=== PATIENT | female | born 1930 | race Caucasian/White ===

== ENCOUNTER 2018-06-26 23:12 | Inpatient (IN) | payer MEDICARE ==
[2018-06-26] MEDS ORDERED: SODIUM CHLORIDE 0.9% 1,000 ML IV STA (23:19)
--- NOTE | 2018-06-26 23:23 | ED ---
General Adult HPI - General Chief complaint: Altered Mental Status Stated complaint: hypoxemia Time Seen by Provider: 06/26/18 23:19 Source: EMS, RN notes reviewed, old records reviewed Mode of arrival: EMS Limitations: altered mental status - History of Present Illness Initial comments: This is an 87-year-old female the ER for evaluation. Patient coming in for unresponsiveness altered mental status, patient's poor strain, per EMS patient was found to be mildly hypoxic pulse ox 85%. Patient became arousable upon EMS arrival. Patient herself is complaining of no specific complaints is unable to answer significant questions, is able to say her name. No known baseline - Related Data Home Medications Medication Instructions Recorded Confirmed Atenolol 25 mg PO DAILY 10/06/17 10/06/17 Escitalopram [Lexapro] 20 mg PO DAILY 10/06/17 10/06/17 Menthol/Zinc Oxide [Calmoseptine 1 applic TOPICAL TID 10/06/17 10/06/17 Ointment] QUEtiapine [SEROquel] 400 mg PO HS 10/06/17 10/06/17 Previous Rx's Medication Instructions Recorded Aspirin 325 mg PO DAILY tab 10/10/17 Atorvastatin [Lipitor] 40 mg PO DAILY tab 10/10/17 LORazepam [Ativan] 0.5 mg PO BID #10 tablet 10/10/17 LORazepam [Ativan] 1 mg PO HS #5 tab 10/10/17 Pantoprazole [Protonix] 40 mg PO [id number] tablet. 10/10/17 Ciprofloxacin HCl [Cipro] 500 mg PO Q12HR #10 tablet 10/11/17 Allergies Allergy/AdvReac Type Severity Reaction Status Date / Time amphetamine [From Adderall] Allergy Unknown Verified 06/26/18 23:20 dextroamphetamine Allergy Unknown Verified 06/26/18 23:20 [From Adderall] Review of Systems ROS Statement: Those systems with pertinent positive or pertinent negative responses have been documented in the HPI. ROS Other: All systems not noted in ROS Statement are negative. Past Medical History Past Medical History: GERD/Reflux, Hyperlipidemia, Hypertension Additional Past Medical History / Comment(s): BIPOLAR, ANXIETY, COMPULSIVE, depression History of Any Multi-Drug Resistant Organisms: None Reported Past Surgical History: No Surgical Hx Reported Additional Past Surgical History / Comment(s): DAUGHTER IS UNSURE Past Psychological History: Anxiety, Bipolar, Depression Smoking Status: Never smoker Past Alcohol Use History: None Reported Past Drug Use History: None Reported General Exam Limitations: altered mental status General appearance: alert, in no apparent distress Head exam: Present: atraumatic, normocephalic, normal inspection Eye exam: Present: normal appearance, PERRL, EOMI. Absent: scleral icterus, conjunctival injection, periorbital swelling ENT exam: Present: normal exam, mucous membranes moist Neck exam: Present: normal inspection. Absent: tenderness, meningismus, lymphadenopathy Respiratory exam: Present: normal lung sounds bilaterally. Absent: respiratory distress, wheezes, rales, rhonchi, stridor Cardiovascular Exam: Present: regular rate, normal rhythm, normal heart sounds. Absent: systolic murmur, diastolic murmur, rubs, gallop, clicks GI/Abdominal exam: Present: soft, normal bowel sounds. Absent: distended, tenderness, guarding, rebound, rigid Extremities exam: Present: normal inspection, full ROM, normal capillary refill. Absent: tenderness, pedal edema, joint swelling, calf tenderness Back exam: Present: normal inspection Neurological exam: Present: alert, oriented X3, CN II-XII intact Psychiatric exam: Present: normal affect, normal mood Skin exam: Present: warm, dry, intact, normal color. Absent: rash Course Vital Signs 06/26/18 06/26/18 23:13 23:29 Temperature 97.2 F L Pulse Rate 84 64 Respiratory 22 18 Rate Blood Pressure 200/73 150/58 O2 Sat by Pulse 87 L 93 L Oximetry EKG Findings - EKG Comments: EKG Findings:: EKG shows normal sinus rhythm rate of 70, OH 162, QRS 82, QTc 455 Medical Decision Making - Lab Data Result diagrams: 06/26/18 23:30 06/26/18 23:30 Lab Results 06/26/18 06/26/18 06/26/18 Range/Units 23:30 23:30 23:30 WBC 8.3 (3.8-10.6) k/uL RBC 3.92 (3.80-5.40) m/uL Hgb 11.3 L (11.4-16.0) gm/dL Hct 34.4 (34.0-46.0) % MCV 87.8 (80.0-100.0) fL MCH 28.8 (25.0-35.0) pg MCHC 32.8 (31.0-37.0) g/dL RDW 14.4 (11.5-15.5) % Plt Count 160 (150-450) k/uL Neutrophils % 68 % Lymphocytes % 22 % Monocytes % 7 % Eosinophils % 2 % Basophils % 0 % Neutrophils # 5.6 (1.3-7.7) k/uL Lymphocytes # 1.9 (1.0-4.8) k/uL Monocytes # 0.5 (0-1.0) k/uL Eosinophils # 0.1 (0-0.7) k/uL Basophils # 0.0 (0-0.2) k/uL PT (9.0-12.0) sec INR (<1.2) APTT (22.0-30.0) sec Sodium 137 (137-145) mmol/L Potassium 3.7 (3.5-5.1) mmol/L Chloride 110 H (98-107) mmol/L Carbon Dioxide 21 L (22-30) mmol/L Anion Gap 6 mmol/L BUN 21 H (7-17) mg/dL Creatinine 0.50 L (0.52-1.04) mg/dL Est GFR (CKD-EPI)AfAm >90 (>60 ml/min/1.73 sqM) Est GFR (CKD-EPI)NonAf 89 (>60 ml/min/1.73 sqM) Glucose 122 H (74-99) mg/dL Plasma Lactic Acid Bg (0.7-2.0) mmol/L Calcium 8.3 L (8.4-10.2) mg/dL Phosphorus 3.4 (2.5-4.5) mg/dL Magnesium 1.9 (1.6-2.3) mg/dL Total Bilirubin 0.4 (0.2-1.3) mg/dL AST 22 (14-36) U/L ALT 32 (9-52) U/L Alkaline Phosphatase 64 (38-126) U/L Total Creatine Kinase 113 (30-135) U/L CK-MB (CK-2) 2.1 (0.0-2.4) ng/mL CK-MB (CK-2) Rel Index 1.9 Troponin I <0.012 (0.000-0.034) ng/mL Total Protein 5.9 L (6.3-8.2) g/dL Albumin 3.2 L (3.5-5.0) g/dL 06/26/18 06/26/18 Range/Units 23:30 23:30 WBC (3.8-10.6) k/uL RBC (3.80-5.40) m/uL Hgb (11.4-16.0) gm/dL Hct (34.0-46.0) % MCV (80.0-100.0) fL MCH (25.0-35.0) pg MCHC (31.0-37.0) g/dL RDW (11.5-15.5) % Plt Count (150-450) k/uL Neutrophils % % Lymphocytes % % Monocytes % % Eosinophils % % Basophils % % Neutrophils # (1.3-7.7) k/uL Lymphocytes # (1.0-4.8) k/uL Monocytes # (0-1.0) k/uL Eosinophils # (0-0.7) k/uL Basophils # (0-0.2) k/uL PT 10.9 (9.0-12.0) sec INR 1.1 (<1.2) APTT 23.8 (22.0-30.0) sec Sodium (137-145) mmol/L Potassium (3.5-5.1) mmol/L Chloride (98-107) mmol/L Carbon Dioxide (22-30) mmol/L Anion Gap mmol/L BUN (7-17) mg/dL Creatinine (0.52-1.04) mg/dL Est GFR (CKD-EPI)AfAm (>60 ml/min/1.73 sqM) Est GFR (CKD-EPI)NonAf (>60 ml/min/1.73 sqM) Glucose (74-99) mg/dL Plasma Lactic Acid Bg 0.8 (0.7-2.0) mmol/L Calcium (8.4-10.2) mg/dL Phosphorus (2.5-4.5) mg/dL Magnesium (1.6-2.3) mg/dL Total Bilirubin (0.2-1.3) mg/dL AST (14-36) U/L ALT (9-52) U/L Alkaline Phosphatase (38-126) U/L Total Creatine Kinase (30-135) U/L CK-MB (CK-2) (0.0-2.4) ng/mL CK-MB (CK-2) Rel Index Troponin I (0.000-0.034) ng/mL Total Protein (6.3-8.2) g/dL Albumin (3.5-5.0) g/dL Disposition Clinical Impression: Acute encephalopathy, Generalized weakness, Altered mental status, Hypoxia Disposition: ADMITTED IP TO THIS HOSP Condition: Fair Is patient prescribed a controlled substance at d/c from ED?: No Referrals: Drake Garcia DO [REFERRING] - 1-2 days
[2018-06-26 23:45] LABS: Basophils % (A) 0 %; Eosinophils # (A) 0.1 k/uL (0-0.7); Eosinophils % (A) 2 %; HCT 34.4 % (34.0-46.0); HGB 11.3 gm/dL (11.4-16.0); Lymphocytes # (A) 1.9 k/uL (1.0-4.8); Lymphocytes % (A) 22 %; MCH 28.8 pg (25.0-35.0); MCHC 32.8 g/dL (31.0-37.0); MCV 87.8 fL (80.0-100.0); Mean Platelet Volume 7.1; Monocytes # (A) 0.5 k/uL (0-1.0); Monocytes % (A) 7 %; Neutrophils # (A) 5.6 k/uL (1.3-7.7); Neutrophils % (A) 68 %; Platelet Count 160 k/uL (150-450); RBC 3.92 m/uL (3.80-5.40); RDW 14.4 % (11.5-15.5); WBC 8.3 k/uL (3.8-10.6)
[2018-06-26 23:52] LABS: INR 1.1 (<1.2); Partial Thromboplastin Time 23.8 sec (22.0-30.0); Prothrombin Time 10.9 sec (9.0-12.0)
[2018-06-26 23:54] LABS: ALT 32 U/L (9-52); AST 22 U/L (14-36); Albumin 3.2 g/dL (3.5-5.0); Alkaline Phosphatase 64 U/L (38-126); Anion Gap 6 mmol/L; Blood Urea Nitrogen 21 mg/dL (7-17); Calcium 8.3 mg/dL (8.4-10.2); Carbon Dioxide 21 mmol/L (22-30); Chloride 110 mmol/L (98-107); Glucose 122 mg/dL (74-99); Magnesium 1.9 mg/dL (1.6-2.3); Phosphorus 3.4 mg/dL (2.5-4.5); Potassium 3.7 mmol/L (3.5-5.1); Sodium 137 mmol/L (137-145); Total Bilirubin 0.4 mg/dL (0.2-1.3); Total Protein 5.9 g/dL (6.3-8.2)
[2018-06-26 23:56] LABS: Creatine Kinase 113 U/L (30-135)
[2018-06-27 00:09] LABS: Creatine Kinase MB 2.1 ng/mL (0.0-2.4); Troponin I <0.012 ng/mL (0.000-0.034)
--- NOTE | 2018-06-27 00:13 | XR ---
EXAMINATION TYPE: XR chest 2V DATE OF EXAM: 06/27/2018 COMPARISON: 10/06/2017 HISTORY: Weakness TECHNIQUE: Frontal and lateral views of the chest are obtained. FINDINGS: There is elevated right diaphragm and linear density at the right lung base. There is no h eart failure. Thoracic aorta is atheromatous. There is no definite pleural effusion. There are chest leads. IMPRESSION: Increased atelectasis at the right lung base compared to old exam. No heart failure.
[2018-06-27] MEDS ORDERED: LEVOFLOXACIN 750MG-D5W PMX 750 MG in DEXTROSE/WATER 1 150ML.BAG IVPB STA (00:25)
[2018-06-27] MEDS ORDERED: LEVOFLOXACIN 750MG-D5W PMX 750 MG in DEXTROSE/WATER 1 150ML.BAG IVPB SCH (00:30)
[2018-06-27 00:55] LABS: Appearance,Urine Clear (Clear); Bilirubin,Urine Negative (Negative); Blood,Urine Moderate (Negative); Color,Urine Yellow; Glucose,Urine (UA) Negative (Negative); Hyaline Casts,Urine 2 /lpf (0-2); Ketones,Urine Negative (Negative); Leukocyte Esterase,Urine Negative (Negative); Mucus,Urine Occasional /hpf; Nitrite,Urine Negative (Negative); PH, Urine 5.5 (5.0-8.0); Protein,Urine Trace (Negative); RBC,Urine 34 /hpf (0-5); Specific Gravity,Urine 1.015 (1.001-1.035); Squamous Epithelial Cell,Urine <1 /hpf (0-4); Urobilinogen,Urine <2.0 mg/dL (<2.0); WBC,Urine 7 /hpf (0-5)
[2018-06-27 01:52] VITALS: BMI 21.4
[2018-06-27] MEDS: IPRATROPIUM-ALBUTEROL 3 ML NEB INHALATION SCH ×4 (07:06→19:42)
[2018-06-27 09:58] VITALS: RESP 16
[2018-06-27] MEDS: ENOXAPARIN 40 MG/0.4 ML SYRINGE SQ SCH (09:59)
--- NOTE | 2018-06-27 16:27 | P.HPIM ---
History of Present Illness 82-year-old female was brought in here because of complaint of altered mental status. When I evaluated the patient her mental status is at her baseline denied dysuria patient is alert oriented 1-2. Patient appears to have dementia which appears to be advanced appears to have vascular dementia. Patient had a recent stroke. Patient denied any fever chills patient is saturating well does not have any pneumonia denied any cough. 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 Patient is on Seroquel and Lexapro for agitation and depression. Patient is also on Ativan which will be discontinued considering her age and dementia Review of Systems REVIEW OF SYSTEMS: CONSTITUTIONAL: No fever, no malaise, no fatigue. HEENT: No recent visual problems or hearing problems. Denied any sore throat. CARDIOVASCULAR: No chest pain, orthopnea, PND, no palpitations, no syncope. PULMONARY: No shortness of breath, no cough, no hemoptysis. GASTROINTESTINAL: No diarrhea, no nausea, no vomiting, no abdominal pain. Normoactive bowel sounds. NEUROLOGICAL: No headaches, no weakness, no numbness. HEMATOLOGICAL: Denies any bleeding or petechiae. GENITOURINARY: Denies any burning micturition, frequency, or urgency. MUSCULOSKELETAL/RHEUMATOLOGICAL: Denies any joint pain, swelling, or any muscle pain. ENDOCRINE: Denies any polyuria or polydipsia. The rest of the 14-point review of systems is negative. Past Medical History Past Medical History: CVA/TIA, GERD/Reflux, Hyperlipidemia, Hypertension Additional Past Medical History / Comment(s): BIPOLAR, ANXIETY, COMPULSIVE, depression, CVA October 2017 History of Any Multi-Drug Resistant Organisms: None Reported Past Surgical History: No Surgical Hx Reported Additional Past Surgical History / Comment(s): DAUGHTER IS UNSURE Past Anesthesia/Blood Transfusion Reactions: No Reported Reaction Past Psychological History: Anxiety, Bipolar, Depression Smoking Status: Never smoker Past Alcohol Use History: None Reported Past Drug Use History: None Reported Medications and Allergies Home Medications Medication Instructions Recorded Confirmed Type Atenolol 25 mg PO DAILY 10/06/17 06/27/18 History Escitalopram [Lexapro] 20 mg PO DAILY 10/06/17 06/27/18 History QUEtiapine [SEROquel] 400 mg PO HS 10/06/17 06/27/18 History Atorvastatin [Lipitor] 40 mg PO DAILY tab 10/10/17 06/27/18 Rx Docusate [Colace] 100 mg PO BID 06/27/18 06/27/18 History Omeprazole [PriLOSEC] 20 mg PO DAILY 06/27/18 06/27/18 History Ramipril [Altace] 5 mg PO HS 06/27/18 06/27/18 History Allergies Allergy/AdvReac Type Severity Reaction Status Date / Time amphetamine [From Adderall] Allergy Unknown Verified 06/27/18 09:12 dextroamphetamine Allergy Unknown Verified 06/27/18 09:12 [From Adderall] Physical Exam Vitals: Vital Signs Temp Pulse Pulse Resp BP BP Pulse Ox 06/27/18 16:10 66 06/27/18 15:48 65 06/27/18 15:00 99.9 F H 79 16 194/73 90 L 06/27/18 10:56 64 06/27/18 10:48 68 06/27/18 09:58 98.9 F 84 16 169/80 94 L 06/27/18 07:15 60 06/27/18 07:08 60 06/27/18 02:09 60 06/27/18 00:57 97.2 F L 68 18 180/52 99 06/27/18 00:46 97.8 F 60 16 155/72 96 06/26/18 23:29 64 18 150/58 93 L 06/26/18 23:13 97.2 F L 84 22 200/73 87 L Intake and Output 06/27/18 06/27/18 06/27/18 06:59 14:59 22:59 Intake Total 500 Balance 500 Intake: Amount of Fluid Infused ( 100 ml) Intake, IV Titration 400 Amount Sodium Chloride 0.9% 1, 400 000 ml @ 100 mls/hr IV . Q10H STA Rx#:[id number] Other: # Voids 2 1 # Bowel Movements 1 Weight 49.895 kg PHYSICAL EXAMINATION: GENERAL: The patient is alert and oriented x1-2, not in any acute distress. Well developed, well nourished. HEENT: Pupils are round and equally reacting to light. EOMI. No scleral icterus. No conjunctival pallor. Normocephalic, atraumatic. No pharyngeal erythema. No thyromegaly. CARDIOVASCULAR: S1 and S2 present. No murmurs, rubs, or gallops. PULMONARY: Chest is clear to auscultation, no wheezing or crackles. ABDOMEN: Soft, nontender, nondistended, normoactive bowel sounds. No palpable organomegaly. MUSCULOSKELETAL: No joint swelling or deformity. EXTREMITIES: No cyanosis, clubbing, or pedal edema. NEUROLOGICAL: Gross neurological examination did not reveal any focal deficits. SKIN: No rashes. Results CBC & Chem 7: 06/26/18 23:30 06/26/18 23:30 Labs: Abnormal Lab Results - Last 24 Hours (Table) 06/26/18 06/26/18 06/27/18 Range/Units 23:30 23:30 00:35 Hgb 11.3 L (11.4-16.0) gm/dL Chloride 110 H (98-107) mmol/L Carbon Dioxide 21 L (22-30) mmol/L BUN 21 H (7-17) mg/dL Creatinine 0.50 L (0.52-1.04) mg/dL Glucose 122 H (74-99) mg/dL Calcium 8.3 L (8.4-10.2) mg/dL Total Protein 5.9 L (6.3-8.2) g/dL Albumin 3.2 L (3.5-5.0) g/dL Urine Protein Trace H (Negative) Urine Blood Moderate H (Negative) Urine RBC 34 H (0-5) /hpf Urine WBC 7 H (0-5) /hpf Urine Mucus Occasional H (None) /hpf Microbiology - Last 24 Hours (Table) 06/27/18 00:35 Urine Culture - Preliminary Urine,Catheterized Thrombosis Risk Factor Assmnt - Choose All That Apply Each Risk Factor Represents 3 Points: Age 75 years or older Thrombosis Risk Factor Assessment Total Risk Factor Score: 3 Thrombosis Risk Factor Assessment Level: Moderate Risk Assessment and Plan Plan: -Delirium and the acute encephalopathy prior probably patient has toxic encephalopathy Ativan will be discontinued. I do not believe patient has urinary tract infection and medics were discontinued Levaquin and will make Her confusion worse. Urine is not impressive for UTI although it does have some leukocyte esterase. Patient does not have any symptoms. Patient confusion may be related to her advancing dementia as well. Patient is bit dehydrated will be continued on IV fluids. -Advanced dementia: Possible vascular dementia and senile dementia. -Recent CVA -Gastroesophageal reflux disease -Hyperlipidemia -Hypertension
[2018-06-27] MEDS: ATENOLOL 25 MG TAB PO SCH (16:37)
[2018-06-27] MEDS: DOCUSATE 100 MG CAP PO SCH (20:35)
[2018-06-27] MEDS ORDERED: QUEtiapine 400 MG TAB PO SCH (21:00)
[2018-06-27] MEDS ORDERED: LISINOPRIL 20 MG TAB PO SCH (21:00)
[2018-06-28] MEDS: IPRATROPIUM-ALBUTEROL 3 ML NEB INHALATION SCH ×3 (07:04→15:48)
[2018-06-28] MEDS ORDERED: PANTOPRAZOLE 40 MG TABLET PO SCH (07:30)
[2018-06-28 07:40] VITALS: BP 150/67; TEMP 97.9
[2018-06-28] MEDS: ENOXAPARIN 40 MG/0.4 ML SYRINGE SQ SCH (08:38)
[2018-06-28] MEDS: ATENOLOL 25 MG TAB PO SCH (08:38)
[2018-06-28] MEDS: DOCUSATE 100 MG CAP PO SCH (08:38)
[2018-06-28] MEDS ORDERED: ATORVASTATIN 40 MG TAB PO SCH (09:00)
[2018-06-28] MEDS ORDERED: ESCITALOPRAM 20 MG TAB PO SCH (09:00)
--- NOTE | 2018-06-28 14:09 | P.DS ---
Providers Date of admission: 06/27/18 00:24 Attending physician: Deric Gutierrez Primary care physician: Luke Calderon MD Hospital Course: 82-year-old female admitted for altered mental status secondary to dehydration and the worsening dementia. Patient is clinically doing well at her baseline patient is being discharged today Ativan is being discontinued avoid opiates benzodiazepines barbiturates and anticholinergic medications patient does have senile in the vascular dementia. Which is pretty advanced. Patient will will discharge to assisted living PHYSICAL EXAMINATION: GENERAL: The patient is alert and oriented x1-2, not in any acute distress. Well developed, well nourished. HEENT: Pupils are round and equally reacting to light. EOMI. No scleral icterus. No conjunctival pallor. Normocephalic, atraumatic. No pharyngeal erythema. No thyromegaly. CARDIOVASCULAR: S1 and S2 present. No murmurs, rubs, or gallops. PULMONARY: Chest is clear to auscultation, no wheezing or crackles. ABDOMEN: Soft, nontender, nondistended, normoactive bowel sounds. No palpable organomegaly. MUSCULOSKELETAL: No joint swelling or deformity. EXTREMITIES: No cyanosis, clubbing, or pedal edema. NEUROLOGICAL: Gross neurological examination did not reveal any focal deficits. SKIN: No rashes. Assessment and Plan Plan: -Delirium and the acute encephalopathy prior probably patient has toxic encephalopathy Ativan will be discontinued. I do not believe patient has urinary tract infection and medics were discontinued Levaquin and will make Her confusion worse. Urine is not impressive for UTI although it does have some leukocyte esterase. Patient does not have any symptoms. Patient confusion may be related to her advancing dementia as well. Improved serum creatinine with IV fluids -Advanced dementia: Possible vascular dementia and senile dementia. -Recent CVA -Gastroesophageal reflux disease -Hyperlipidemia -Hypertension Patient Condition at Discharge: Fair Plan - Discharge Summary New Discharge Prescriptions: Discontinued LORazepam [Ativan] 1 mg PO DAILY@1400 LORazepam [Ativan] 0.5 mg PO BID@0800,1900 No Action QUEtiapine [SEROquel] 400 mg PO HS Escitalopram [Lexapro] 20 mg PO DAILY Atenolol 25 mg PO DAILY Atorvastatin [Lipitor] 40 mg PO DAILY tab Ramipril [Altace] 5 mg PO HS Omeprazole [PriLOSEC] 20 mg PO DAILY Docusate [Colace] 100 mg PO BID Discharge Medication List Atenolol 25 mg PO DAILY 10/06/17 [History] Escitalopram [Lexapro] 20 mg PO DAILY 10/06/17 [History] QUEtiapine [SEROquel] 400 mg PO HS 10/06/17 [History] Atorvastatin [Lipitor] 40 mg PO DAILY tab 10/10/17 [Rx] Docusate [Colace] 100 mg PO BID 06/27/18 [History] Omeprazole [PriLOSEC] 20 mg PO DAILY 06/27/18 [History] Ramipril [Altace] 5 mg PO HS 06/27/18 [History] Follow up Appointment(s)/Referral(s): Drake Garcia DO [REFERRING] - 3 Days Discharge Disposition: HOME SELF-CARE
[2018-06-28 16:00] VITALS: PULSE 70
== END 2018-06-28 16:19 | disposition home or self-care (01) | DRG 92 ==
LOC: EC 23:12 → SUPCPDRO 23:12 → 3SUR 06-27 00:24
PROVIDERS: ADMIT Hospitalist; ATTEND Hospitalist
DX: G92 Toxic encephalopathy (principal); F05 Delirium due to known physiological condition; E86.0 Dehydration; F03.90 Unspecified dementia, unspecified severity, without behavioral disturbance, psychotic disturbance, mood disturbance, and anxiety; F01.50 Vascular dementia, unspecified severity, without behavioral disturbance, psychotic disturbance, mood disturbance, and anxiety; T42.4X5A Adverse effect of benzodiazepines, initial encounter; K21.9 Gastro-esophageal reflux disease without esophagitis; E78.5 Hyperlipidemia, unspecified; I10 Essential (primary) hypertension; F31.9 Bipolar disorder, unspecified; F41.9 Anxiety disorder, unspecified; R09.02 Hypoxemia; Z79.82 Long term (current) use of aspirin; Z79.899 Other long term (current) drug therapy; Z86.73 Personal history of transient ischemic attack (TIA), and cerebral infarction without residual deficits; Z88.8 Allergy status to other drugs, medicaments and biological substances
CPT/HCPCS: 36415; 71046; 80053; 81001; 82550; 82553; 83605; 83735; 84100; 84484; 85025; 85610; 85730; 87086; 93005; 94640; 99285

== ENCOUNTER 2021-07-31 16:15 | Inpatient (IN) | payer MEDICARE, OTHER ==
--- NOTE | 2021-07-31 17:04 | ED ---
SOB HPI - General Chief Complaint: Shortness of Breath Stated Complaint: covid+AMISHA Time Seen by Provider: 07/31/21 16:49 Source: EMS, RN notes reviewed, old records reviewed Mode of arrival: EMS Limitations: altered mental status (History of dementia) - History of Present Illness Initial Comments: Patient is a 89-year-old female, with history of advanced dementia, presenting to the emergency department via EMS from hospice secondary to shortness of br eath, recent covid positive test. According to EMS, she was satting 87-89% on room air. Patient has been on hospice for 1 year, taken off secondary to this diagnosis. She is a DO NOT RESUSCITATE. Patient has severe dementia, poor historian. She has no complaints right now. No one else to provide history. She is no acute distress. Keeps repeating over and over "please help me." Patient's vital signs are stable, she was 87 on room air upon arrival, she is currently 93% on 2 L. - Related Data Home Medications Medication Instructions Recorded Confirmed Docusate [Colace] 100 mg PO BID 06/27/18 06/27/18 Acetaminophen Suppository [Tylenol 650 mg RECTAL Q6H PRN 07/31/21 07/31/21 Suppository] Acetaminophen Tab [Tylenol Tab] 1,000 mg PO BID@08,199907/31/21 07/31/21 Atenolol [Tenormin] 25 mg PO BID@0800,199907/31/21 07/31/21 Citalopram Hydrobromide [CeleXA] 20 mg PO DAILY@0800 07/31/21 07/31/21 HYDROcodone/APAP 5-325MG [[place] 1 tab PO Q6H PRN 07/31/21 07/31/21 5-325] Hyoscyamine Sulfate [Hyoscyamine 0.125 mg SL Q4H PRN 07/31/21 07/31/21 Sulfate SL] Imodium 2mg/ Simethicone 125mg Tabs 1 tab PO DAILY PRN 07/31/21 07/31/21 LORazepam [Ativan] 0.5 mg PO Q6H PRN 07/31/21 07/31/21 LORazepam [Ativan] 1 - 2 mg PO DAILY PRN 07/31/21 07/31/21 LORazepam [Ativan] 1 mg PO BID@0800,199907/31/21 07/31/21 LORazepam [Ativan] 1 mg PO DAILY@1300 07/31/21 07/31/21 Lactulose 20 gm PO DAILY PRN 07/31/21 07/31/21 Morphine Sulfate [Morphine Sulfate 5 mg PO Q3H PRN 07/31/21 07/31/21 Oral Soln Conc (20 MG/ML)] Ondansetron [Zofran] 4 mg PO Q8H PRN 07/31/21 07/31/21 Prochlorperazine [Compazine] 10 mg PO Q6H PRN 07/31/21 07/31/21 QUEtiapine [SEROquel] 50 mg PO DAILY@0800 07/31/21 07/31/21 QUEtiapine [SEROquel] 400 mg PO HS@199907/31/21 07/31/21 bisacodyL 10 mg RECTAL DAILY PRN 07/31/21 07/31/21 guaiFENesin [Diabetic Tussin] 100 mg PO Q4H PRN 07/31/21 07/31/21 Allergies Allergy/AdvReac Type Severity Reaction Status Date / Time amphetamine [From Adderall] Allergy Unknown Verified 07/31/21 18:28 dextroamphetamine Allergy Unknown Verified 07/31/21 18:28 [From Adderall] Review of Systems ROS Statement: Those systems with pertinent positive or pertinent negative responses have been documented in the HPI. ROS Other: All systems not noted in ROS Statement are negative. Past Medical History Past Medical History: GERD/Reflux, Hyperlipidemia, Hypertension Additional Past Medical History / Comment(s): BIPOLAR, ANXIETY, COMPULSIVE, depression History of Any Multi-Drug Resistant Organisms: None Reported Past Surgical History: No Surgical Hx Reported Additional Past Surgical History / Comment(s): DAUGHTER IS UNSURE Past Anesthesia/Blood Transfusion Reactions: No Reported Reaction Past Psychological History: Anxiety, Bipolar, Depression Past Alcohol Use History: None Reported Past Drug Use History: None Reported General Exam - General Exam Comments Initial Comments: GENERAL: Patient is well-developed and well-nourished. Patient is nontoxic and in no acute distress. Repeats "please help me" HEAD: Atraumatic, normocephalic. EYES: Pupils equal round and reactive to light, extraocular movements intact, sclera anicteric, conjunctiva are normal. Eyelids were unremarkable. ENT: TMs normal, nares patent, oropharynx clear without exudates. Moist mucous membranes. NECK: Normal range of motion, supple without lymphadenopathy or JVD. LUNGS: Unlabored respirations. Breath sounds clear to auscultation bilaterally and equal. No wheezes rales or rhonchi. HEART: Regular rate and rhythm without murmurs, rubs or gallops. ABDOMEN: Soft, nontender, normoactive bowel sounds. No guarding, no rebound. No masses appreciated. : Deferred MUSCULOSKELETAL: Normal extremities with adequate strength and normal range of motion, no pitting or edema. No clubbing or cyanosis. NEUROLOGICAL: Patient is alert and oriented x 1, hx of dementia, this is her baseline. Motor and sensory are also intact. Symmetrical smile. SKIN: Warm, Dry, normal turgor, no rashes or lesions noted. Course Vital Signs 07/31/21 07/31/21 16:30 18:04 Temperature 98.2 F Pulse Rate 71 68 Respiratory 22 22 Rate Blood Pressure 121/65 151/64 O2 Sat by Pulse 93 L 95 Oximetry Medical Decision Making - Medical Decision Making Patient is an 89-year-old female with history of hypertension, dementia, presenting for shortness of breath, recent Covid positive test. She has been on hospice for over a year, for failure to thrive, she was taken off secondary to diagnosis sent in for evaluation. Poor historian, no one else to help with history. She was satting 88% on room air in EMS prior to arrival, she is currently on 2 L and 94%. Rest of vitals are within normal limits. Labs are within normal limits, rapid Covid is positive. Chest x-ray shows multifocal pneumonia. Patient will be admitted for Covid hypoxia. Patient accepted by Dr. Olmos. Case discussed with Dr. Bond. - Lab Data Result diagrams: 07/31/21 17:53 07/31/21 17:53 Lab Results 07/31/21 07/31/21 07/31/21 Range/Units 17:53 17:53 17:53 WBC 8.6 (3.8-10.6) k/uL RBC 4.80 (3.80-5.40) m/uL Hgb 15.6 (11.4-16.0) gm/dL Hct 46.8 H (34.0-46.0) % MCV 97.6 (80.0-100.0) fL MCH 32.4 (25.0-35.0) pg MCHC 33.2 (31.0-37.0) g/dL RDW 13.0 (11.5-15.5) % Plt Count 168 (150-450) k/uL MPV 7.7 Neutrophils % 81 % Lymphocytes % 13 % Monocytes % 5 % Eosinophils % 0 % Basophils % 0 % Neutrophils # 6.9 (1.3-7.7) k/uL Lymphocytes # 1.1 (1.0-4.8) k/uL Monocytes # 0.4 (0-1.0) k/uL Eosinophils # 0.0 (0-0.7) k/uL Basophils # 0.0 (0-0.2) k/uL PT 10.2 (9.0-12.0) sec INR 0.9 (<1.2) APTT 23.3 (22.0-30.0) sec Sodium 138 (137-145) mmol/L Potassium 4.6 (3.5-5.1) mmol/L Chloride 107 (98-107) mmol/L Carbon Dioxide 21 L (22-30) mmol/L Anion Gap 10 mmol/L BUN 39 H (7-17) mg/dL Creatinine 0.90 (0.52-1.04) mg/dL Est GFR (CKD-EPI)AfAm 66 (>60 ml/min/1.73 sqM) Est GFR (CKD-EPI)NonAf 57 (>60 ml/min/1.73 sqM) Glucose 126 H (74-99) mg/dL Plasma Lactic Acid Bg (0.7-2.0) mmol/L Calcium 8.6 (8.4-10.2) mg/dL Magnesium 2.3 (1.6-2.3) mg/dL Total Bilirubin 0.7 (0.2-1.3) mg/dL AST 49 H (14-36) U/L ALT 32 (4-34) U/L Alkaline Phosphatase 102 (38-126) U/L Troponin I (0.000-0.034) ng/mL NT-Pro-B Natriuret Pep pg/mL Total Protein 6.8 (6.3-8.2) g/dL Albumin 4.0 (3.5-5.0) g/dL Coronavirus (PCR) (Not Detectd) 07/31/21 07/31/21 07/31/21 Range/Units 17:53 17:53 17:53 WBC (3.8-10.6) k/uL RBC (3.80-5.40) m/uL Hgb (11.4-16.0) gm/dL Hct (34.0-46.0) % MCV (80.0-100.0) fL MCH (25.0-35.0) pg MCHC (31.0-37.0) g/dL RDW (11.5-15.5) % Plt Count (150-450) k/uL MPV Neutrophils % % Lymphocytes % % Monocytes % % Eosinophils % % Basophils % % Neutrophils # (1.3-7.7) k/uL Lymphocytes # (1.0-4.8) k/uL Monocytes # (0-1.0) k/uL Eosinophils # (0-0.7) k/uL Basophils # (0-0.2) k/uL PT (9.0-12.0) sec INR (<1.2) APTT (22.0-30.0) sec Sodium (137-145) mmol/L Potassium (3.5-5.1) mmol/L Chloride (98-107) mmol/L Carbon Dioxide (22-30) mmol/L Anion Gap mmol/L BUN (7-17) mg/dL Creatinine (0.52-1.04) mg/dL Est GFR (CKD-EPI)AfAm (>60 ml/min/1.73 sqM) Est GFR (CKD-EPI)NonAf (>60 ml/min/1.73 sqM) Glucose (74-99) mg/dL Plasma Lactic Acid Bg 1.2 (0.7-2.0) mmol/L Calcium (8.4-10.2) mg/dL Magnesium (1.6-2.3) mg/dL Total Bilirubin (0.2-1.3) mg/dL AST (14-36) U/L ALT (4-34) U/L Alkaline Phosphatase (38-126) U/L Troponin I 0.014 (0.000-0.034) ng/mL NT-Pro-B Natriuret Pep 1100 pg/mL Total Protein (6.3-8.2) g/dL Albumin (3.5-5.0) g/dL Coronavirus (PCR) (Not Detectd) 07/31/21 Range/Units 17:53 WBC (3.8-10.6) k/uL RBC (3.80-5.40) m/uL Hgb (11.4-16.0) gm/dL Hct (34.0-46.0) % MCV (80.0-100.0) fL MCH (25.0-35.0) pg MCHC (31.0-37.0) g/dL RDW (11.5-15.5) % Plt Count (150-450) k/uL MPV Neutrophils % % Lymphocytes % % Monocytes % % Eosinophils % % Basophils % % Neutrophils # (1.3-7.7) k/uL Lymphocytes # (1.0-4.8) k/uL Monocytes # (0-1.0) k/uL Eosinophils # (0-0.7) k/uL Basophils # (0-0.2) k/uL PT (9.0-12.0) sec INR (<1.2) APTT (22.0-30.0) sec Sodium (137-145) mmol/L Potassium (3.5-5.1) mmol/L Chloride (98-107) mmol/L Carbon Dioxide (22-30) mmol/L Anion Gap mmol/L BUN (7-17) mg/dL Creatinine (0.52-1.04) mg/dL Est GFR (CKD-EPI)AfAm (>60 ml/min/1.73 sqM) Est GFR (CKD-EPI)NonAf (>60 ml/min/1.73 sqM) Glucose (74-99) mg/dL Plasma Lactic Acid Bg (0.7-2.0) mmol/L Calcium (8.4-10.2) mg/dL Magnesium (1.6-2.3) mg/dL Total Bilirubin (0.2-1.3) mg/dL AST (14-36) U/L ALT (4-34) U/L Alkaline Phosphatase (38-126) U/L Troponin I (0.000-0.034) ng/mL NT-Pro-B Natriuret Pep pg/mL Total Protein (6.3-8.2) g/dL Albumin (3.5-5.0) g/dL Coronavirus (PCR) Detected A (Not Detectd) Disposition Clinical Impression: Pneumonia due to COVID-19 virus, Hypoxia Disposition: ADMITTED IP TO THIS HOSP Condition: Fair Referrals: Luke Calderon MD [Primary Care Provider] - 1-2 days Decision Date: 07/31/21 Decision Time: 19:35
--- NOTE | 2021-07-31 17:52 | XR ---
EXAMINATION TYPE: XR chest 1V portable DATE OF EXAM: 07/31/2021 COMPARISON: Chest radiograph 06/27/2018 HISTORY: Dyspnea and altered mental status. COVID positive. TECHNIQUE: Single frontal view of the chest is obtained. FINDINGS: The cardiomediastinal silhouette and pulmonary vasculature are within normal limits. Low lung volumes. There are by lateral patchy airspace opacities. IMPRESSION: Multifocal pneumonia.
[2021-07-31 18:17] LABS: Basophils % (A) 0 %; Eosinophils % (A) 0 %; HCT 46.8 % (34.0-46.0); HGB 15.6 gm/dL (11.4-16.0); Lymphocytes # (A) 1.1 k/uL (1.0-4.8); Lymphocytes % (A) 13 %; MCH 32.4 pg (25.0-35.0); MCHC 33.2 g/dL (31.0-37.0); MCV 97.6 fL (80.0-100.0); Mean Platelet Volume 7.7; Monocytes # (A) 0.4 k/uL (0-1.0); Monocytes % (A) 5 %; Neutrophils # (A) 6.9 k/uL (1.3-7.7); Neutrophils % (A) 81 %; Platelet Count 168 k/uL (150-450); WBC 8.6 k/uL (3.8-10.6)
[2021-07-31 18:27] LABS: Calcium 8.6 mg/dL (8.4-10.2); INR 0.9 (<1.2); Magnesium 2.3 mg/dL (1.6-2.3); Partial Thromboplastin Time 23.3 sec (22.0-30.0); Potassium 4.6 mmol/L (3.5-5.1); Prothrombin Time 10.2 sec (9.0-12.0); Total Bilirubin 0.7 mg/dL (0.2-1.3); Total Protein 6.8 g/dL (6.3-8.2)
[2021-07-31] MEDS ORDERED: SODIUM CHLORIDE 0.9% 1,000 ML IV STA (19:22)
[2021-07-31] MEDS ORDERED: ONDANSETRON 4 MG/2 ML VIAL IVP PRN (19:35)
[2021-07-31] MEDS ORDERED: ACETAMINOPHEN TAB 325 MG TAB PO PRN (19:35)
[2021-07-31] MEDS ORDERED: NALOXONE 0.4 MG/ML 1 ML VIAL IV PRN (19:35)
[2021-07-31] MEDS: DEXAMETHASONE SOD PHOSPHATE 10 MG/ML 1 ML VIAL IV SCH (23:00)
--- NOTE | 2021-08-01 03:28 | P.HPIM ---
History of Present Illness H&P Date: 07/31/21 Chief Complaint: Shortness of breath 89-year-old female has been on hospice due to advanced dementia Family is not available to provide any history. Patient has advanced dementia unable to provide any meaningful history at all she says is get meout of here From reviewing medical records seems like she has been recently diagnosed with Covid, today EMS was notified due to increased work of breathing she was found to be hypoxic on room air 87% for which she was brought in here she was taken off hospice and was brought into the hospital for evaluation and treatment. No other history is available at this time. Patient remains DO NOT RESUSCITATE, oxygenation improved with supplemental oxygen through nasal cannula currently her os sat at 93%. Chest x-ray showed multifocal patchy infiltrates Blood work overall was unremarkable Review of Systems ROS unobtainable: due to mental status Past Medical History Past Medical History: Dementia, GERD/Reflux, Hyperlipidemia, Hypertension Additional Past Medical History / Comment(s): BIPOLAR, ANXIETY, COMPULSIVE, depression History of Any Multi-Drug Resistant Organisms: None Reported Past Surgical History: No Surgical Hx Reported Additional Past Surgical History / Comment(s): DAUGHTER IS UNSURE Past Anesthesia/Blood Transfusion Reactions: No Reported Reaction Past Psychological History: Anxiety, Bipolar, Depression Past Alcohol Use History: None Reported Past Drug Use History: None Reported - Past Family History Family Family Medical History: Unable to Obtain Medications and Allergies Home Medications Medication Instructions Recorded Confirmed Type Docusate [Colace] 100 mg PO BID@0800,199906/27/18 07/31/21 History Acetaminophen Suppository [Tylenol 650 mg RECTAL Q6H PRN 07/31/21 07/31/21 History Suppository] Acetaminophen Tab [Tylenol Tab] 1,000 mg PO BID@08,199907/31/21 07/31/21 History Atenolol [Tenormin] 25 mg PO BID@00,199907/31/21 07/31/21 History Citalopram Hydrobromide [CeleXA] 20 mg PO DAILY@0800 07/31/21 07/31/21 History HYDROcodone/APAP 5-325MG [[place] 1 tab PO Q6H PRN 07/31/21 07/31/21 History 5-325] Hyoscyamine Sulfate [Hyoscyamine 0.125 mg SL Q4H PRN 07/31/21 07/31/21 History Sulfate SL] Imodium 2mg/ Simethicone 125mg Tabs 1 tab PO DAILY PRN 07/31/21 07/31/21 History LORazepam [Ativan] 0.5 mg PO Q6H PRN 07/31/21 07/31/21 History LORazepam [Ativan] 1 - 2 mg PO DAILY PRN 07/31/21 07/31/21 History LORazepam [Ativan] 1 mg PO BID@0800,199907/31/21 07/31/21 History LORazepam [Ativan] 1 mg PO DAILY@1300 07/31/21 07/31/21 History Lactulose 20 gm PO DAILY PRN 07/31/21 07/31/21 History Morphine Sulfate [Morphine Sulfate 5 mg PO Q3H PRN 07/31/21 07/31/21 History Oral Soln Conc (20 MG/ML)] Ondansetron [Zofran] 4 mg PO Q8H PRN 07/31/21 07/31/21 History Prochlorperazine [Compazine] 10 mg PO Q6H PRN 07/31/21 07/31/21 History QUEtiapine [SEROquel] 50 mg PO DAILY@0800 07/31/21 07/31/21 History QUEtiapine [SEROquel] 400 mg PO HS@199907/31/21 07/31/21 History bisacodyL 10 mg RECTAL DAILY PRN 07/31/21 07/31/21 History guaiFENesin [Diabetic Tussin] 100 mg PO Q4H PRN 07/31/21 07/31/21 History Allergies Allergy/AdvReac Type Severity Reaction Status Date / Time amphetamine [From Adderall] Allergy Unknown Verified 07/31/21 18:28 dextroamphetamine Allergy Unknown Verified 07/31/21 18:28 [From Adderall] Physical Exam Vitals: Vital Signs Temp Pulse Resp BP Pulse Ox 07/31/21 18:04 68 22 151/64 95 07/31/21 16:30 98.2 F 71 22 121/65 93 L Intake and Output 07/31/21 07/31/21 07/31/21 06:59 14:59 22:59 Other: Weight 54.431 kg Constitutional: No acute distress, patient is confused Eyes: Anicteric sclerae, moist conjunctiva, Pupils equal round reactive to light ENMT: NC/AT Neck: Supple, no masses, or JVD No carotid bruits No thyromegaly Lungs: Clear to auscultation Clear to percussion Normal respiratory effort, no accessory muscle use Cardiovascular: Heart regular in rate and rhythm, No murmurs, gallops, or rubs No peripheral edema Abdominal: Soft Nontender, no guarding, rebound or rigidity Abdomen moving with respiration Normoactive bowel sounds No hepatomegaly, No splenomegaly No palpable mass No abdominal wall hernia noted Skin: Normal temperature, tone, texture, turgor No induration No subcutaneous nodules No rash, lesions No ulcers Extremities: No digital cyanosis No clubbing Pedal pulses intact and symmetrical Radial pulses intact and symmetrical No calf tenderness Psychiatric: Patient is confused screaming get me out of here Neuro patient unable to follow commands she is moving bilateral upper extremities purposefully Lymphatics: no palpable cervical or supraclavicular , or inguinal lymph nodes Results CBC & Chem 7: 07/31/21 17:53 07/31/21 17:53 Labs: Abnormal Lab Results - Last 24 Hours (Table) 07/31/21 07/31/21 07/31/21 Range/Units 17:53 17:53 17:53 Hct 46.8 H (34.0-46.0) % Carbon Dioxide 21 L (22-30) mmol/L BUN 39 H (7-17) mg/dL Glucose 126 H (74-99) mg/dL AST 49 H (14-36) U/L Coronavirus (PCR) Detected A (Not Detectd) Assessment and Plan Assessment: Acute hypoxic respiratory failure Covid pneumonitis Advanced dementia Patient was taken off hospice today Plan Verify goal of treatment with family once available Supportive care Supplemental oxygen as needed Decadron daily Follow-up labs Fall precautions Lovenox subcu daily Discussed CODE STATUS with family Discussed goals of therapy Prognosis guarded Anticipated length of stay more than 2 midnights Anticipated discharge pending goal of care discussion family
[2021-08-01] MEDS: ENOXAPARIN 40 MG/0.4 ML SYRINGE SQ SCH (09:23)
[2021-08-01] MEDS: QUEtiapine 50 MG TAB PO SCH (09:24)
[2021-08-01] MEDS: DEXAMETHASONE SOD PHOSPHATE 10 MG/ML 1 ML VIAL IV SCH (09:24)
[2021-08-01] MEDS: CITALOPRAM HYDROBROMIDE 20 MG TAB PO SCH (09:24)
[2021-08-01] MEDS: atenoloL 25 MG TAB PO SCH ×2 (09:24→20:28)
[2021-08-01] MEDS: LORazepam 1 MG TAB PO SCH ×2 (09:24→20:28)
[2021-08-01] MEDS: DOCUSATE 100 MG CAP PO SCH ×2 (09:24→20:27)
[2021-08-01] MEDS: ALPRAZolam 0.25 MG TAB PO PRN ×2 (15:38→22:54)
--- NOTE | 2021-08-01 16:15 | P.PN ---
Subjective Progress Note Date: 08/01/21 Pt is not oriented. Will not keep oxygen on. Nursing t/b with POA who reasserted desire to be treated for COVID, and to pause hospice for now. Pt is no code. Objective - Vital Signs Vital signs: Vital Signs Temp 99.0 F 07/31/21 23:00 Pulse 78 08/01/21 09:31 Resp 18 08/01/21 09:31 BP 180/96 08/01/21 09:31 Pulse Ox 98 08/01/21 09:31 Intake & Output 07/31/21 08/01/21 08/01/21 18:59 06:59 18:59 Weight 54.431 kg - Exam Gen: Awake, not oriented HEENT: normocephalic, atraumatic, good hearing acuity, moist mucous membranes Resp: good air exchange, breathing comfortably with no accessory muscle use CVS: good distal perfusion x 4, GI: soft, NTTP, ND : no SPT, no CVAT, donnelly catheter not present MSK: no pitting edema, no clubbing Neuro: non-focal, moving all extremities - Labs CBC & Chem 7: 07/31/21 17:53 07/31/21 17:53 Labs: Abnormal Lab Results - Last 24 Hours (Table) 07/31/21 07/31/21 07/31/21 Range/Units 17:53 17:53 17:53 Hct 46.8 H (34.0-46.0) % Carbon Dioxide 21 L (22-30) mmol/L BUN 39 H (7-17) mg/dL Glucose 126 H (74-99) mg/dL AST 49 H (14-36) U/L Coronavirus (PCR) Detected A (Not Detectd) Assessment and Plan Assessment: Acute hypoxic respiratory failure Covid pneumonitis Advanced dementia Patient was taken off hospice today Plan Verify goal of treatment with family once available Supportive care Supplemental oxygen as needed Decadron daily Follow-up labs Fall precautions Lovenox subcu daily Discussed CODE STATUS with family Discussed goals of therapy Prognosis guarded Anticipated length of stay more than 2 midnights Anticipated discharge pending goal of care discussion family
[2021-08-01] MEDS: QUEtiapine 400 MG TAB PO SCH (20:28)
[2021-08-02] MEDS: QUEtiapine 50 MG TAB PO SCH (07:26)
[2021-08-02] MEDS: CITALOPRAM HYDROBROMIDE 20 MG TAB PO SCH (07:27)
[2021-08-02] MEDS: LORazepam 1 MG TAB PO SCH ×2 (07:27→20:46)
[2021-08-02] MEDS: atenoloL 25 MG TAB PO SCH ×2 (07:27→20:46)
[2021-08-02] MEDS: DOCUSATE 100 MG CAP PO SCH ×2 (07:27→20:47)
[2021-08-02] MEDS: ENOXAPARIN 40 MG/0.4 ML SYRINGE SQ SCH (07:27)
[2021-08-02] MEDS: DEXAMETHASONE SOD PHOSPHATE 10 MG/ML 1 ML VIAL IV SCH (08:54)
--- NOTE | 2021-08-02 14:23 | P.PN ---
Subjective Progress Note Date: 08/02/21 No new complaints. Ongoing therapy for Covid Objective - Vital Signs Vital signs: Vital Signs Temp 97.8 F 08/02/21 10:10 Pulse 65 08/02/21 10:10 Resp 16 08/02/21 10:10 BP 104/64 08/02/21 10:10 Pulse Ox 95 08/02/21 10:10 Intake & Output 08/01/21 08/02/21 08/02/21 18:59 06:59 18:59 Other: Voiding Method Incontinent Incontinent # Voids 2 # Bowel Movements 2 - Exam Gen: Awake, not oriented HEENT: normocephalic, atraumatic, good hearing acuity, moist mucous membranes Resp: good air exchange, breathing comfortably with no accessory muscle use CVS: good distal perfusion x 4, GI: soft, NTTP, ND : no SPT, no CVAT, donnelly catheter not present MSK: no pitting edema, no clubbing Neuro: non-focal, moving all extremities - Labs CBC & Chem 7: 07/31/21 17:53 07/31/21 17:53 Assessment and Plan Assessment: Acute hypoxic respiratory failure Covid pneumonitis Advanced dementia Patient was taken off hospice today Plan Verify goal of treatment with family once available Supportive care Supplemental oxygen as needed Decadron daily Follow-up labs Fall precautions Lovenox subcu daily Discussed CODE STATUS with family Discussed goals of therapy Prognosis guarded Anticipated length of stay more than 2 midnights Anticipated discharge pending goal of care discussion family
[2021-08-02] MEDS: QUEtiapine 400 MG TAB PO SCH (20:46)
[2021-08-03] MEDS: CITALOPRAM HYDROBROMIDE 20 MG TAB PO SCH (09:09)
[2021-08-03] MEDS: ENOXAPARIN 40 MG/0.4 ML SYRINGE SQ SCH (09:09)
[2021-08-03] MEDS: LORazepam 1 MG TAB PO SCH ×2 (09:09→20:17)
[2021-08-03] MEDS: DEXAMETHASONE SOD PHOSPHATE 10 MG/ML 1 ML VIAL IV SCH (09:09)
[2021-08-03] MEDS: atenoloL 25 MG TAB PO SCH (09:09)
[2021-08-03] MEDS: DOCUSATE 100 MG CAP PO SCH ×2 (09:09→20:17)
[2021-08-03] MEDS: QUEtiapine 50 MG TAB PO SCH (09:10)
--- NOTE | 2021-08-03 16:12 | P.PN ---
Progress Note - Text Progress Note Date: 08/03/21 Presenting complaint: Shortness of breath Interval history: Patient was under hospice due to advanced dementia and AFC. Patient is found to be hypoxic on room air 87% and she was taken out of hospice and brought in the hospital. Also increase very short of breath. Patient was DO NOT RESUSCITATE. 08/03/2021: Reclining in bed, tired. Some shortness of breath. Oral intake about 25% Progress review of systems difficult to obtain as because of dementia Active Medications Acetaminophen (Acetaminophen Tab 325 Mg Tab) 650 mg PO Q6HR PRN PRN Reason: Mild Pain or Fever > 100.5 Alprazolam (Alprazolam 0.25 Mg Tab) 0.25 mg PO TID PRN PRN Reason: Anxiety Last Admin: 08/01/21 22:54 Dose: 0.25 mg Documented by: Atenolol (Atenolol 25 Mg Tab) 25 mg PO BID [facility] Last Admin: 08/03/21 09:09 Dose: 25 mg Documented by: Citalopram Hydrobromide (Citalopram Hydrobromide 20 Mg Tab) 20 mg PO DAILY [facility] Last Admin: 08/03/21 09:09 Dose: 20 mg Documented by: Dexamethasone Sodium Phosphate (Dexamethasone Sod Phosphate 10 Mg/Ml 1 Ml Vial) 6 mg IV DAILY [facility] Last Admin: 08/03/21 09:09 Dose: 6 mg Documented by: Docusate Sodium (Docusate 100 Mg Cap) 100 mg PO BID [facility] Last Admin: 08/03/21 09:09 Dose: 100 mg Documented by: Enoxaparin Sodium (Enoxaparin 40 Mg/0.4 Ml Syringe) 40 mg SQ DAILY [facility] Last Admin: 08/03/21 09:09 Dose: 40 mg Documented by: Lorazepam (Lorazepam 1 Mg Tab) 1 mg PO BID [facility] Last Admin: 08/03/21 09:09 Dose: 1 mg Documented by: Naloxone HCl (Naloxone 0.4 Mg/Ml 1 Ml Vial) 0.2 mg IV Q2M PRN PRN Reason: Opioid Reversal Ondansetron HCl (Ondansetron 4 Mg/2 Ml Vial) 4 mg IVP Q8HR PRN PRN Reason: Nausea And Vomiting Quetiapine Fumarate (Quetiapine 50 Mg Tab) 50 mg PO DAILY [facility] Last Admin: 08/03/21 09:10 Dose: 50 mg Documented by: Quetiapine Fumarate (Quetiapine 400 Mg Tab) 400 mg PO HS DIANDRA Last Admin: 08/02/21 20:46 Dose: 400 mg Documented by: On examination: VITAL SIGNS: 98, 70, 18, 172/72, 96% on 3 L GENERAL APPEARANCE: Reclining in bed, awake, tired NECK: JVD not raised. Mass not palpable. RESPIRATORY: Respiratory effort increased. PSYCHIATRY: Answering occasional questions Rest of the exam per nursing . Investigations: WBC 8.6 hemoglobin 15.6 platelets 168 potassium 4.6 creatinine 0.9 Coronavirus [PCR]: Detected Assessment and plan: -Acute hypoxic respiratory failure due to COVID 19 Currently on 3 L of nasal cannula -COVID 19 pneumonitis On dexamethasone. Changed to by mouth. Subcu Lovenox -Major cognitive impairment due to late onset Alzheimer's dementia Seroquel -Essential hypertension Tenormin 25 mg twice a day -DO NOT RESUSCITATE Continue current medication treatment plan. Changed dexamethasone to by mouth. Spoke to the renal case manager. Looking for placement.
[2021-08-03] MEDS: METOPROLOL TARTRATE 50 MG TAB PO SCH ×2 (16:38→21:50)
[2021-08-03] MEDS: QUEtiapine 400 MG TAB PO SCH (20:17)
[2021-08-04] MEDS: METOPROLOL TARTRATE 50 MG TAB PO SCH ×3 (08:46→21:00)
[2021-08-04] MEDS: DOCUSATE 100 MG CAP PO SCH (08:46)
[2021-08-04] MEDS: LORazepam 1 MG TAB PO SCH ×2 (08:46→21:00)
[2021-08-04] MEDS: ENOXAPARIN 40 MG/0.4 ML SYRINGE SQ SCH (08:46)
[2021-08-04] MEDS: CITALOPRAM HYDROBROMIDE 20 MG TAB PO SCH (08:46)
[2021-08-04] MEDS: dexAMETHasone 2 MG TAB PO SCH (08:46)
[2021-08-04] MEDS: QUEtiapine 50 MG TAB PO SCH (08:47)
[2021-08-04] MEDS: LISINOPRIL-HCTZ 10-12.5 MG 1 EACH TAB PO SCH ×2 (12:46→21:45)
--- NOTE | 2021-08-04 14:51 | P.PN ---
Progress Note - Text Progress Note Date: 08/04/21 Presenting complaint: Shortness of breath Interval history: Patient was under hospice due to advanced dementia and AFC. Patient is found to be hypoxic on room air 87% and she was taken out of hospice and brought in the hospital. Also increase very short of breath. Patient was DO NOT RESUSCITATE. 08/03/2021: Reclining in bed, tired. Some shortness of breath. Oral intake about 25% 08/04/2021: Laying in bed. Tired. Some shortness of breath. Limited oral intake. Progress review of systems difficult to obtain as because of dementia Active Medications Acetaminophen (Acetaminophen Tab 325 Mg Tab) 650 mg PO Q6HR PRN PRN Reason: Mild Pain or Fever > 100.5 Alprazolam (Alprazolam 0.25 Mg Tab) 0.25 mg PO TID PRN PRN Reason: Anxiety Last Admin: 08/01/21 22:54 Dose: 0.25 mg Documented by: Citalopram Hydrobromide (Citalopram Hydrobromide 20 Mg Tab) 20 mg PO DAILY [facility] Last Admin: 08/04/21 08:46 Dose: 20 mg Documented by: Dexamethasone (Dexamethasone 2 Mg Tab) 6 mg PO DAILY [facility] Last Admin: 08/04/21 08:46 Dose: 6 mg Documented by: Enoxaparin Sodium (Enoxaparin 40 Mg/0.4 Ml Syringe) 40 mg SQ DAILY [facility] Last Admin: 08/04/21 08:46 Dose: 40 mg Documented by: Lisinopril/HCTZ (Lisinopril-Hctz 10-12.5 Mg 1 Each Tab) 1 each PO BID [facility] Last Admin: 08/04/21 12:46 Dose: 1 each Documented by: Lorazepam (Lorazepam 1 Mg Tab) 1 mg PO BID [facility] Last Admin: 08/04/21 08:46 Dose: 1 mg Documented by: Metoprolol Tartrate (Metoprolol Tartrate 50 Mg Tab) 50 mg PO TID [facility] Last Admin: 08/04/21 08:46 Dose: 50 mg Documented by: Ondansetron HCl (Ondansetron 4 Mg/2 Ml Vial) 4 mg IVP Q8HR PRN PRN Reason: Nausea And Vomiting Quetiapine Fumarate (Quetiapine 50 Mg Tab) 50 mg PO DAILY [facility] Last Admin: 08/04/21 08:47 Dose: 50 mg Documented by: Quetiapine Fumarate (Quetiapine 400 Mg Tab) 400 mg PO HS [facility] Last Admin: 08/03/21 20:17 Dose: 400 mg Documented by: On examination: VITAL SIGNS: 98.5, 78, 18, 132/78, 93% on 2 L GENERAL APPEARANCE: Reclining in bed, awake, tired NECK: JVD not raised. Mass not palpable. RESPIRATORY: Respiratory effort increased. PSYCHIATRY: Answering occasional questions Rest of the exam per nursing Investigations: August 04: D-dimer 0.5 for WBC 8.6 hemoglobin 15.6 platelets 168 potassium 4.6 creatinine 0.9 Coronavirus [PCR]: Detected Assessment and plan: -Acute hypoxic respiratory failure due to COVID 19 Currently on 2 L of nasal cannula -Anorexia from COVID 19 Encourage oral intake -COVID 19 pneumonitis On dexamethasone. Subcu Lovenox -Major cognitive impairment due to late onset Alzheimer's dementia Seroquel -Essential hypertension, uncontrolled Lopressor 50 mg 3 times a day. Add Zestoretic 10/12.5 by mouth twice a day -DO NOT RESUSCITATE (patient was under hospice prior to admission] Continue current medication treatment plan. Blood pressure still uncontrolled. Add Zestoretic 10/12.5 by mouth twice a day. Spoke to the resource management planner. Looking into placement and COVID hub
[2021-08-04] MEDS: QUEtiapine 400 MG TAB PO SCH (21:00)
[2021-08-05] MEDS: SODIUM CHLORIDE 0.9% 1,000 ML IV SCH ×2 (01:08→11:50)
[2021-08-05 06:20] VITALS: TEMP 98.2
[2021-08-05] MEDS: CITALOPRAM HYDROBROMIDE 20 MG TAB PO SCH (08:42)
[2021-08-05] MEDS: QUEtiapine 50 MG TAB PO SCH (08:42)
[2021-08-05] MEDS: ENOXAPARIN 40 MG/0.4 ML SYRINGE SQ SCH (08:42)
[2021-08-05] MEDS: dexAMETHasone 2 MG TAB PO SCH (08:42)
[2021-08-05] MEDS: METOPROLOL TARTRATE 50 MG TAB PO SCH ×2 (08:42→15:56)
[2021-08-05] MEDS: LISINOPRIL-HCTZ 10-12.5 MG 1 EACH TAB PO SCH (08:42)
[2021-08-05] MEDS: LORazepam 1 MG TAB PO SCH (08:42)
[2021-08-05 10:09] VITALS: RESP 16
--- NOTE | 2021-08-05 12:26 | P.DS ---
Providers Date of admission: 07/31/21 18:43 Expected date of discharge: 08/05/21 Attending physician: Clinton Cazares Primary care physician: Luke Calderon MD Hospital Course: Presenting complaint: Shortness of breath Interval history: Patient was under hospice due to advanced dementia and AFC. Patient is found to be hypoxic on room air 87% and she was taken out of hospice and brought in the hospital. Also increase very short of breath. Patient was DO NOT RESUSCITATE. 08/03/2021: Reclining in bed, tired. Some shortness of breath. Oral intake about 25% 08/04/2021: Laying in bed. Tired. Some shortness of breath. Limited oral intake. 08/05/2021: In bed. Comfortable. Occasional coughing. Selective about eating. These assistance with eating. Answering simple questions. Discussion and discharge planning more than 35 minutes On examination: VITAL SIGNS: 98.2, 78, 16, 1:30/71, 98% on 4 L GENERAL APPEARANCE: Reclining in bed, awake, tired NECK: JVD not raised. Mass not palpable. RESPIRATORY: Respiratory effort increased. PSYCHIATRY: Answering occasional questions Rest of the exam per nursing Investigations: August 04: D-dimer 0.5 for WBC 8.6 hemoglobin 15.6 platelets 168 potassium 4.6 creatinine 0.9 Coronavirus [PCR]: Detected Assessment and plan: -Acute hypoxic respiratory failure due to COVID 19 2 L of nasal cannula -Anorexia from COVID 19 Encourage oral intake -COVID 19 pneumonitis On dexamethasone. She'll to 2.5 mg by mouth twice a day for DVT prophylaxis -Major cognitive impairment due to late onset Alzheimer's dementia Seroquel -Essential hypertension, Lopressor 50 mg 3 times a day. Zestoretic 10/12.5 by mouth twice a day -DO NOT RESUSCITATE [facility] [place] Patient Condition at Discharge: Fair Plan - Discharge Summary New Discharge Prescriptions: New Metoprolol Tartrate [Lopressor] 50 mg PO TID tab Acetaminophen Tab [Tylenol] 650 mg PO Q6HR PRN tab PRN Reason: Mild Pain Or Fever > 100.5 dexAMETHasone ORAL [Hexadrol] 6 mg PO DAILY #12 tab Lisinopril-Hctz 10-12.5 mg [Zestoretic 10-12.5] 1 each PO BID tab Continue Ondansetron [Zofran] 4 mg PO Q8H PRN PRN Reason: Nausea bisacodyL 10 mg RECTAL DAILY PRN PRN Reason: Constipation QUEtiapine [SEROquel] 400 mg PO HS@1999 HYDROcodone/APAP 5-325MG [[place] 5-325] 1 tab PO Q6H PRN #12 tab PRN Reason: Pain guaiFENesin [Diabetic Tussin] 100 mg PO Q4H PRN PRN Reason: COUGH AND CONGESTION Prochlorperazine [Compazine] 10 mg PO Q6H PRN PRN Reason: Nausea Hyoscyamine Sulfate [Hyoscyamine Sulfate SL] 0.125 mg SL Q4H PRN PRN Reason: SECCRETIONS QUEtiapine [SEROquel] 50 mg PO DAILY@0800 Citalopram Hydrobromide [CeleXA] 20 mg PO DAILY@0800 LORazepam [Ativan] 1 mg PO BID@799,1999 #6 tab Discontinued Docusate [Colace] 100 mg PO BID@08,1999 Lactulose 20 gm PO DAILY PRN PRN Reason: NO BM X4 DAYS LORazepam [Ativan] 1 - 2 mg PO DAILY PRN PRN Reason: BREAKTHROUGH ANXIETY LORazepam [Ativan] 0.5 mg PO Q6H PRN PRN Reason: ANXIETY OR AGITATION Acetaminophen Suppository [Tylenol Suppository] 650 mg RECTAL Q6H PRN PRN Reason: Pain Or Fever > 100.5 Acetaminophen Tab [Tylenol Tab] 1,000 mg PO BID@799,1999 LORazepam [Ativan] 1 mg PO DAILY@1300 Atenolol [Tenormin] 25 mg PO BID@08,1999 Morphine Sulfate [Morphine Sulfate Oral Soln Conc (20 MG/ML)] 5 mg PO Q3H PRN PRN Reason: PAIN/SHORTNESS OF BREATH Imodium 2mg/ Simethicone 125mg Tabs 1 tab PO DAILY PRN PRN Reason: Diarrhea Discharge Medication List Citalopram Hydrobromide [CeleXA] 20 mg PO DAILY@0800 07/31/21 [History] Hyoscyamine Sulfate [Hyoscyamine Sulfate SL] 0.125 mg SL Q4H PRN 07/31/21 [History] Ondansetron [Zofran] 4 mg PO Q8H PRN 07/31/21 [History] Prochlorperazine [Compazine] 10 mg PO Q6H PRN 07/31/21 [History] QUEtiapine [SEROquel] 50 mg PO DAILY@0800 07/31/21 [History] QUEtiapine [SEROquel] 400 mg PO HS@199907/31/21 [History] bisacodyL 10 mg RECTAL DAILY PRN 07/31/21 [History] guaiFENesin [Diabetic Tussin] 100 mg PO Q4H PRN 07/31/21 [History] Acetaminophen Tab [Tylenol] 650 mg PO Q6HR PRN tab 08/05/21 [Rx] HYDROcodone/APAP 5-325MG [[place] 5-325] 1 tab PO Q6H PRN #12 tab 08/05/21 [Rx] LORazepam [Ativan] 1 mg PO BID@799,1999 #6 tab 08/05/21 [Rx] Lisinopril-Hctz 10-12.5 mg [Zestoretic 10-12.5] 1 each PO BID tab 08/05/21 [Rx] Metoprolol Tartrate [Lopressor] 50 mg PO TID tab 08/05/21 [Rx] dexAMETHasone ORAL [Hexadrol] 6 mg PO DAILY #12 tab 08/05/21 [Rx] Follow up Appointment(s)/Referral(s): Luke Calderon MD [Primary Care Provider] - 1-2 days Activity/Diet/Wound Care/Special Instructions: Hospice: #[phone]
[2021-08-05 16:08] VITALS: BP 144/77; PULSE 64
== END 2021-08-05 16:50 | DRG 177 ==
LOC: EC 16:15 → 4SSUR 18:43
PROVIDERS: ADMIT Hospitalist; ATTEND Hospitalist
PROC: 3E0F7SF Introduction of Other Gas into Respiratory Tract, Via Natural or Artificial Opening (ICD-10-PCS; principal; 2021-07-31)
DX: U07.1 COVID-19 (principal); J12.82 Pneumonia due to coronavirus disease 2019; J96.01 Acute respiratory failure with hypoxia; E78.5 Hyperlipidemia, unspecified; G30.1 Alzheimer's disease with late onset; Z66 Do not resuscitate; F60.5 Obsessive-compulsive personality disorder; R63.0 Anorexia; F02.80 Dementia in other diseases classified elsewhere, unspecified severity, without behavioral disturbance, psychotic disturbance, mood disturbance, and anxiety; F31.9 Bipolar disorder, unspecified; F41.9 Anxiety disorder, unspecified; I10 Essential (primary) hypertension; Z79.899 Other long term (current) drug therapy; Z88.8 Allergy status to other drugs, medicaments and biological substances; Z88.5 Allergy status to narcotic agent
CPT/HCPCS: 36415; 71045; 80053; 83605; 83735; 83880; 84484; 85025; 85379; 85610; 85730; 86140; 87635; 93005; 99285